=== PATIENT | female | born 1975 ===

== ENCOUNTER 2018-12-27 17:44 | Emergency (ER) | payer SELFPAY ==
[~2018-12-27] VITALS: Ht 160 cm; Wt 79.4 kg
[2018-12-27] MEDS ORDERED: GABAPENTIN100 MG ORAL (17:53)
[2018-12-27] MEDS ORDERED: LAMICTAL25 M1 PO (17:53)
[2018-12-27] MEDS ORDERED: BUPROPION XL300 MG ORAL ×2 (17:53→18:44)
[2018-12-27] MEDS ORDERED: Albuterol/Ipratropium 3ml neb HHN ONE (18:15)
--- NOTE | 2018-12-27 18:21 | Emergency Room Report ---
History of Present Illness General Chief Complaint: General Complaint Source: Patient (Bobo Nix) Present Illness HPI 43-year-old female patient presents the ER requesting refill of medication and complaining of shortness of breath for the past few days. Reports she needs a refill of her Wellbutrin medication. Reports history of bipolar disease for which she takes Wellbutrin and Lamictal, states that she ran out of the Wellbutrin 1 week ago. States that she is still been taking the Lamictal. States she is been on the medication for over a year. Reports she recently moved here from [place] several months ago however has not establish care with a psychiatrist at this time. Reports did not come sooner to get refill the medication because her "insurance was not settled" and she was not sure she was going to be able to be seen. Reports shortness of breath and chest discomfort symptoms for the past few days. Reports she believes is related to her smoking "lots of marijuana". Reports no cough or hemoptysis during this time. Denies fever, chest pain. Denies vomiting or diarrhea. Denies recent travel outside the country. Denies history of asthma or heart disease. Denies other aggravating or relieving factors. Denies thoughts of hurting herself or others. (Bobo Nix) Allergies: Coded Allergies: No Known Allergies (Unverified , 12/27/18) Patient History Past Medical History: see triage record Last Menstrual Period: 12/04/18 Reviewed Nursing Documentation: PMH: Agreed; PSxH: Agreed (Bobo Nix) Nursing Documentation-PMH Past Medical History: No History, Except For History Of Psychiatric Problem: Yes - bipolar, depression (Bobo Nix) Review of Systems All Other Systems: negative except mentioned in HPI (Bobo Nix) Physical Exam Vital Signs Date Time Temp Pulse Resp B/P (MAP) Pulse Ox O2 Delivery O2 Flow Rate FiO2 12/27/18 17:48 99.1 71 18 137/87 97 Room Air Sp02 EP Interpretation: reviewed, normal General Appearance: well appearing, no apparent distress, alert, GCS 15, non- toxic Head: normocephalic, atraumatic Eyes: bilateral eye normal inspection, bilateral eye PERRL ENT: hearing grossly normal, normal pharynx, no angioedema, normal voice, TMs + canals normal, uvula midline, moist mucus membranes Neck: full range of motion, no meningismus, no bony tend Respiratory: lungs clear, normal breath sounds, no rhonchi, no respiratory distress, no accessory muscle use, speaking full sentences, wheezing Cardiovascular #1: regular rate, rhythm, no edema Gastrointestinal: non tender, soft, no mass, non-distended, no guarding, no rebound Genitourinary: no CVA tenderness Musculoskeletal: back normal, digits/nails normal, gait/station normal, normal range of motion, non-tender, no calf tenderness, Andrews's Sign negative Neurologic: alert, oriented x3, responsive, motor strength/tone normal, sensory intact Psychiatric: mood/affect normal Skin: no rash (Bobo Nix) Medical Decision Making PA Attestation Dr. Lemos is my supervising Physician whom patient management has been discussed with. (Bobo Nix) Diagnostic Impression: Primary Impression: Bronchitis Additional Impression: Encounter for medication refill ER Course Pt presents to ED c/o breathing difficulty and medication refill. DDX considered but are not limited to asthma, viral URI, influenza, bronchitis, pneumonia, PE, medication refill. Negative Homans sign, negative hemoptysis, no tachycardia, low suspicion for PE per well's criteria. Denies history of heart disease, denies smoking cigarettes, low suspicion for cardiac etiology of symptoms, does not require cardiac workup at this time. VITAL SIGNS are WNL, patient is afebrile. ER COURSE CXR negative for acute disease per the preliminary reading. Low suspicion for PNA. Patient provided with prednisone and cough medication. Duoneb breathing treatment provided. Following treatment patient states no longer having difficulty with breathing. Lung sounds improved. Patient is resting comfortably in no acute distress. Will provide refill of Wellbutrin medication. Advised patient follow-up with mental health professional to discuss further management care. Informed patient that ER does not normally provide refills of medications. Advised patient she needs outpatient care and follow-up. Provided with contact information for mental health urgent care. Patient states she will follow-up. Do not believe patient is danger to herself or others at this time, denies SI or HI. Okay for outpatient follow-up and treatment. ER precautions given. Take Tylenol for pain symptoms. DISCHARGE: -Rx given for Prednisone. -Rx provided for Albuterol MDI. -Rx provided for Tessalon Perles Rx provided for Wellbutrin At this time pt is stable for d/c to home. Patient is resting comfortably in no acute distress, nontoxic appearing, able to answer questions without difficulty. Patient to take medications as instructed Will provide with patient care instructions and any necessary prescriptions. Care plan and follow-up instructions provided. Patient instructed to follow-up with primary care provider in 3 - 5 days. Patient questions asked and answered. Patient reports understanding and agreement to treatment plan. ER precautions given. Patient instructed to return to ER immediately for any new or worsening of symptoms including but not limited to increasing SOB, persistent fever. - Please note that this Emergency Department Report was dictated using [employer] unloader technology software, occasionally this can lead to erroneous entry secondary to interpretation by the dictation equipment. (Bobo Nix) Chest X-Ray Diagnostic Results Chest X-Ray Diagnostic Results : Chest X-Ray Ordered: Yes # of Views/Limited/Complete: 1 View Indication: Chest Pain EP Interpretation: Yes PA Xray: Interpretation reviewed, by supervising MD, and agrees with findings. Interpretation: no consolidation, no effusion, no pneumothorax, no acute cardiopulmonary disease Impression: No acute disease PA Scribe Text Ángel Nix PA-C (Bobo Nix) Chest X-Ray Diagnostic Results : Electronically Signed by: Elijah Adam documentation of Xray reviewed by me and is accurate, Chinmay Lemos MD (Chnimay Lemos MD) Last Vital Signs Date Time Temp Pulse Resp B/P (MAP) Pulse Ox O2 Delivery O2 Flow Rate FiO2 12/27/18 17:48 99.1 71 18 137/87 97 Room Air Status: improved (Bobo Nix) Disposition: HOME, SELF-CARE Condition: Stable Scripts Bupropion Hcl* (WELLBUTRIN*) 300 Mg Tab.er.24h 300 MG ORAL DAILY, #30 TAB 0 Refills Prov: Bobo Nix 12/27/18 Benzonatate* (TESSALON PERLE*) 100 Mg Capsule 100 MG ORAL THREE TIMES A DAY, #30 PERLE Prov: Bobo Nix 12/27/18 Albuterol Sulfate* (ALBUTEROL SULFATE MDI*) 8.5 Gm Hfa.aer.ad 2 PUFF INH Q6H, #1 INH 0 Refills Prov: Bobo Nix 12/27/18 Prednisone* (PREDNISONE*) 20 Mg Tablet 40 MG ORAL DAILY for 4 Days, #8 TAB Prov: Bobo Nix 12/27/18 Patient Instructions: Acute Bronchitis, [id number], Medicine Refill at the Emergency Department Additional Instructions: Followup with primary care provider in 3 -5 days. Discussed referral to mental health professional. Do not smoke marijuana. Follow-up with mental health urgent care. Take medications as directed. Drink plenty of fluids. Patient questions asked and answered. ER precautions given, patient instructed to return to ER immediately for any new or worsening of symptoms. Bobo Nix Dec 27, 2018 18:21 Chinmay Lemos MD Dec 28, 2018 03:28
[2018-12-27] MEDS ORDERED: PREDNISONE20 MG ORAL (18:44)
[2018-12-27] MEDS ORDERED: TESSALON PERLE100 MG ORAL (18:44)
[2018-12-27] MEDS ORDERED: ALBUTEROL SULF8.5 GM INH (18:44)
[2018-12-27 18:49] VITALS: BP 137/87
[2018-12-27 18:50] VITALS: BP 137/87
--- NOTE | 2018-12-27 18:50 | NUR ---
ED Nurse Note: pt. received breathing treatment and po meds pt cleared to be d/c per ERMD, pt discharge and aftercare instruction provided w/ prescription, pt education done via discussion and handout, pt advised to follow up with pcp or return to ed if sx worsen or new sx develop, pt verbalized understanding and agrees with plan, vss, ambulatory w/ steady gait, left w/ all belongings. ID band removed
--- NOTE | 2018-12-27 19:19 | Diagnostic Imaging Report ---
EXAM: XR Chest, 1 View CLINICAL HISTORY: PAIN TECHNIQUE: Frontal view of the chest. COMPARISON: none FINDINGS: Lungs: Unremarkable. No consolidation. Pleural space: Unremarkable. No pneumothorax. Heart: Unremarkable. No cardiomegaly. Mediastinum: Unremarkable. Bones/joints: Unremarkable. IMPRESSION: Normal chest x-ray.
== END 2018-12-27 20:32 | disposition home or self-care (01) ==
LOC: EMR 18:30
DX: J20.9 Acute bronchitis, unspecified (principal); Z76.0 Encounter for issue of repeat prescription; F31.9 Bipolar disorder, unspecified; F32.9 Major depressive disorder, single episode, unspecified; F12.90 Cannabis use, unspecified, uncomplicated; R07.9 Chest pain, unspecified
CPT/HCPCS: 71045; 94640; 94664; 99284; J7512; J7620